=== PATIENT | male | born 1955 | race Caucasian/White ===

== ENCOUNTER → 2025-04-05 11:51 | Outpatient (REF) | payer BC, SELFPAY | LOC: HWRCS 11:51 | PROVIDERS: ATTENDING PHYSICIAN Nurse Practitioner; FAMILY PHYSICIAN Family Medicine | DX: I48.91 Unspecified atrial fibrillation (principal); I42.1 Obstructive hypertrophic cardiomyopathy; R07.89 Other chest pain | CPT/HCPCS: 78452; 93017; A9500; J2785 ==

== ENCOUNTER 2025-05-17 08:09 | Day surgery (SDC) | payer OTHER, SELFPAY ==
[2025-05-02 10:52] VITALS: BMI 28.7
[2025-05-02 11:09] LABS: INR 1.10; PT 14.7 Sec (11.4-14.6)
[2025-05-02 11:11] LABS: Hematocrit 43.1 % (39.0-52.0); Hemoglobin 14.7 g/dL (13.0-18.0); Mean Corp Hgb Conc. 34.1 g/dL (33.0-37.0); Mean Corpuscular Volume 89.0 fL (80.0-94.0); Platelet Count 154 10^3/uL (130-400); Red Cell Dist. Width 13.0 % (11.5-14.5)
[2025-05-02 11:24] LABS: ALT (SGPT) 33 U/L (0-50); AST (SGOT) 31 U/L (17-59); Albumin 4.7 g/dl (3.5-5.0); Alkaline Phosphatase 57 U/L (38-126); Blood Urea Nitrogen 15 mg/dl (9-20); Calcium 9.4 mg/dl (8.4-10.2); Carbon Dioxide 28 mmol/L (22-30); Chloride 107 mmol/L (98-107); Estimated Creatinine Clearance 94 ml/min; Glucose 108 mg/dl (70-99); Magnesium 2.1 mg/dl (1.6-2.3); Potassium 4.6 mmol/L (3.5-5.1); Sodium 141 mmol/L (135-145); Total Protein 7.2 g/dl (6.3-8.2); eGFR > 60.00
[2025-05-17] VITALS (21 sets, daily range): BP systolic 93–147; BP diastolic 57–79; BMI 28.8
--- NOTE | 2025-05-17 12:58 | ITS.CL.ABL ---
[employer] - Ablation
Ablation
Procedure Report:
ELECTROPHYSIOLOGIC STUDY AND POSSIBLE ABLATION
DATE: May 17, 2025
Primary Care Provider: Dr Corey Chong
INDICATION:
Symptomatic Atrial Fibrillation.
Persistent
HISTORY: See H and P.
Symptomatic AF, poorly controlled with attempted medical therapy.
His medical history is also significant for hypertrophic obstructive cardiomyopathy diagnosed in [address] [facility] inherited cardiovascular disease clinic by Dr Mendoza.
Additionally there is a history of hypertension, dyslipidemia, gout, prediabetes and atrial fibrillation. Outpatient monitoring in September 2024 demonstrated 9% burden of atrial fibrillation. He has been treated with Eliquis for atrial fibrillation
related thromboembolic risk reduction. Initially treated with verapamil for rate control but this was discontinued due to hypotension and fatigue. Then metoprolol was attempted but he also felt poorly with fatigue.
He has a history of heavier alcohol use mother reports that he quit heavy/hard alcohol use and now has about 4-5 beers per week.
Cardiac MRI 10/03/2021: Normal LV size with asymmetrical septal hypertrophy and maximal septal wall thickness 15 mm of mid septum, 3 papillary muscles which apically insert, EF 56%, patchy mid myocardial PE at basal to mid septum and at anterior and
inferior RV insertion points, overall extent of DE is 5% of the myocardial mass, findings consistent with hypertrophic cardiomyopathy no ELIA of mitral valve.
Echo 02/03/2021: Normal LV size, no cavity or outflow tract obstruction no segmental wall motion abnormalities, longitudinal peak systolic strain 13.1%, echo findings consistent with nonobstructive hypertrophic cardiomyopathy, mild systolic anterior
motion of mitral valve
HAS-BLED: 2
Age
Alcohol use
CHADSVASc: 2
HTN
Age
PRESENTING RHYTHM: AF
HISTORY: See H and P.
Symptomatic AF, poorly controlled with attempted medical therapy.
ANTICOAGULATION: Apixaban 5 mg twice daily
'TIME-OUT': called and confirmed.
SEDATION/ANESTHESIA: provided via the anesthesia department using general anesthesia.
PROCEDURE:
Ultrasound Guidance with real-time visualization of needle insertion and vessel patency performed by me for femoral venous Vascular Access.
Under real-time US guidance, the needle was advanced with negative pressure into the vein. The needle was seen entering the vessel lumen with a good return of dark red flow, the syringe was removed, non-pulsatile, dark red blood low was noted and
the wire was passed without difficulty, then the needle was removed. US confirmed the wire was in the vein, not going into an artery,
Images were taken and saved for the patient's permanent record. Imaging findings typical femoral venous anatomy. Direct visualization of needle puncture into the femoral vein was observed and recorded.
A decapolar CS catheter was placed within the CS for mapping and pacing.
The intracardiac ultrasound catheter was positioned in the RA for continuous intracardiac ultrasound imaging.
Heparin bolus and infusion to target ACT at 300 -350 seconds was administered. Transseptal puncture was performed. This entailed advancing a sheath with dilator into the superior vena cava and withdrawing both (monitoring intracardiac ultrasound,
fluoroscopy and tip pressure) with the tip oriented toward the atrial septum. The fossa ovalis was engaged (indicated by sudden displacement of the sheath tip as well as tenting of the fossa seen on intracardiac ultrasound).
Transseptal puncture was performed. Left atrial catheter position was confirmed by echocardiographic imaging, pressure monitoring (LA mean pressure [ ] mm Hg) and fluoroscopy. The sheath was advanced over the dilator and positioned in the left
atrium.
The Sphere 9 multipolar mapping/ablation Sphere-9 catheter was positioned through the transseptal sheath for high density mapping.
Geometry and voltage mapping was performed using the [employer] mapping system for three-dimensional electroanatomical mapping.
Catheter positioning was guided and confirmed using both I.C.E. and fluoroscopy.
High density electroanatomical three-dimensional mapping demonstrated four PVs: LSPV, LIPV, RSPV, RIPV.
Ablation strategy included PVI as well as mapping for extra PV contributors to atrial fibrillation which would also be targeted if present.
After accomplishing pulmonary venous isolation, mapping identified additional areas likely to be extra PV contributors to atrial fibrillation. These areas demonstrated patchy low voltage as well as complex fractionated electrograms. These areas can
be sites for the formation of rotors which can drive and maintain atrial fibrillation. These areas are known to be significant contributors to initiation and perpetuation of atrial fibrillation.
Additional energy applications/additional ablation sets targeted extra PV contributors to atrial fibrillation.
Targets for additional PFA ablation included:
LA posterior wall targeted with pulsed electric field energy isolating the posterior wall of the left atrium
After ablation of the posterior wall, additional targets were addressed:
LA inferior floor
The ridge of tissue between the left atrial appendage and the left sided pulmonary veins (Ligament of Young )
These areas were ablated using pulsed electric field energy eliminating the extra PV contributors to atrial fibrillation.
Cardioversion resulted in sinus rhythm.
Post ablation mapping finds entrance and exit block at each of the pulmonary veins, the LA posterior wall and at the additional lines at the inferior/floor of the LA and the Ligament of Marshal rendering the sites no longer able to contribute to
atrial fibrillation.
Programmed electrostimulation including burst atrial pacing as well the delivery of decremental extrastimuli down to atrial effective refractory period and no sustained arrhythmias could be induced.
I.C.E. :
Pre-Ablation Post-Ablation
LVEF: 55 % 55 %
WMA: none none
Pericardial effusion: none none
LA Pressure (mmHg) 15 13
COMPLICATIONS:
None
SUMMARY:
- Mapping and ablation to isolate the PVs resulting in electrical isolation of the pulmonary veins
- Additional AF ablation sets X 3 after PVI (LA posterior wall, Inf/floor of the LA posterior wall, ligament of Young) resulting in elimination of the targeted extra PV contributors to atrial fibrillation.
- 3-D Electroanatomical Mapping
- Intracardiac Ultrasound
- Ultrasound guidance for vascular access
Post ablation, I discussed today's findings and results with the patient's , Mario Alberto.
RECOMMENDATIONS:
- Observe in monitored bed.
- Maintain oral anticoagulation.
- Office visit with me is scheduled for August 23, 2025
Copy to:
Dr Corey Chong
Dr Figueroa Alberto
[2025-05-17] MEDS: ANESTHETIC LOZENGE 1 LOZENGE PO (13:13)
--- NOTE | 2025-05-17 16:37 | W.PN.UPDATE ---
Update Note
Progress Note Update
70 yo WM s/p PVI (same day). He denies cp, sob, kale diet, voiding, EKG SR, R fem site c/d/i no HT, soft. He will resume Eliquis tonight. Activity restrictions reviewed. He will f/u Dr. Casper in 3 mo. He is for d/c home after 515p if groin stable.
[2025-05-18 11:04] LABS: ACT-LR - POC 318 Seconds (116-155)
[2025-05-18 11:04] LABS: ACT-LR - POC 340 Seconds (116-155)
[2025-05-18 11:04] LABS: ACT-LR - POC 273 Seconds (116-155)
== END 2025-05-17 17:05 | disposition home or self-care (01) ==
LOC: CATH 08:09
PROVIDERS: ATTENDING PHYSICIAN Internal Medicine Cardiovascular Disease; FAMILY PHYSICIAN Family Medicine; OTHER PHYSICIAN Internal Medicine
DX: I48.91 Unspecified atrial fibrillation (principal); I25.10 Atherosclerotic heart disease of native coronary artery without angina pectoris; I42.1 Obstructive hypertrophic cardiomyopathy; I11.0 Hypertensive heart disease with heart failure; M10.9 Gout, unspecified; E78.5 Hyperlipidemia, unspecified; Z79.01 Long term (current) use of anticoagulants; E11.9 Type 2 diabetes mellitus without complications; Z79.899 Other long term (current) drug therapy; I47.20 Ventricular tachycardia, unspecified; I50.32 Chronic diastolic (congestive) heart failure
CPT/HCPCS: C1733; C1894; C1769; C1766; C1730; C1892; C1759; 36415; 75572; 80053; 83735; 85027; 85347; 85610; 86850; 86900; 86901; 93005; 93656; 93657; Q9967